=== PATIENT | male | born 1985 | race Caucasian/White ===

== ENCOUNTER 2017-03-26 05:03 | Emergency (ER) | payer OTHER ==
[~2017-03-26] VITALS: Ht 175.3 cm; Wt 94.8 kg
--- NOTE | 2017-03-26 05:03 | NUR ---
Patient to [facility] for evaluation. Side rails up. Report given to NOEMI BALDWIN.
--- NOTE | 2017-03-26 05:03 | NUR ---
Sofiya mireles in ED - 03/26/17 at 0615 by [email or web address] Patient to [facility] for evaluation. Side rails up. Report given to NOEMI BALDWIN.
--- NOTE | 2017-03-26 05:04 | NUR ---
Pt brought in by [facility] for blood alcohol draw. Pt denies any complaints and injuries at this time. -sob -chest pain. No acute distress noted at this time, will continue to monitor
[2017-03-26 05:06] VITALS: BP_SYST 138
--- NOTE | 2017-03-26 05:19 | NUR ---
Written and verbal consent obtained from patient for blood alcohol, name and verified by patient. Disinfected patient's skin with BETADINE that did not contain alcohol or other volatile organic compound. Collected the blood from the subject named by venipuncture, in the presence of Officer APOLINAR FERNANDEZ #[id number]. Used a sterile, dry hypodermic needle and dry vacuum blood collection. The dry vacuum blood collection was supplied by the officer named above. Withdrew a specimen of blood from RIGHT AC of the subject named above. Inverted the blood tube several times to ensure that the preservative and anticoagulant were thoroughly mixed in the blood specimen. I initialed the blood tube label for identification. The labeled blood tube was handed directly to the Officer named above. The blood tube stopper remained in place while I had possession of the blood tube. The Officer placed tube into envelope and sealed it in my presence. Envelope initialed by myself and Officer named above. Patient tolerated well, bandage applied, and bleeding controlled.
[2017-03-26 05:22] VITALS: BP_SYST 138
== END 2017-03-26 05:22 ==
LOC: SED 05:03
DX: Z02.89 Encounter for other administrative examinations (principal)